=== PATIENT | male | born 1960 | race Caucasian/White ===

== ENCOUNTER 2016-10-30 21:48 | Day surgery (SDC) | payer BC ==
--- NOTE | 2016-10-30 22:13 | EDM.PDOC ---
ED HPI GENERAL MEDICAL PROBLEM - General Chief Complaint: General Stated Complaint: meat stuck in throat Time Seen by Provider: 10/30/16 22:02 Source of Information: Reports: Patient History Limitations: Reports: No Limitations - History of Present Illness INITIAL COMMENTS - FREE TEXT/NARRATIVE: There is a 55-year-old male. Around 9 PM this evening he was eating roast beef and took too big of a chunk and swallowed it and it got stuck in his distal esophagus. He has been trying to drink some fluids but they won't go down he has discomfort in the area just above his epigastric region. He is done this once before 22 years ago. He has no history of anyone telling him he has esophageal strictures he's not been stretched. He has not noticed recently that he is having more difficulty in swallowing foods he just took too big of a chunk of meat this evening and it got stuck. He has had no difficulty in breathing or swallowing and no shortness of breath. He denies any other acute symptoms. - Related Data Allergies Allergy/AdvReac Type Severity Reaction Status Date / Time No Known Allergies Allergy Verified 10/30/16 22:00 Home Meds: Home Meds Aspirin [Ning Chewable Aspirin] 81 mg PO DAILY 10/30/16 [History] Past Medical History HEENT History: Reports: Impaired Vision Cardiovascular History: Reports: High Cholesterol Gastrointestinal History: Reports: Colon Polyp Oncologic (Cancer) History: Reports: Colon Other Oncologic History: pre-cancerous polyp - Infectious Disease History Infectious Disease History: Reports: Chicken Pox - Past Surgical History HEENT Surgical History: Reports: Tonsillectomy, Other (See Below) Other HEENT Surgeries/Procedures: wisdom teeth GI Surgical History: Reports: Appendectomy, Colonoscopy, EGD Other GI Surgeries/Procedures: 22 years ago had meat stuck in throat had an endoscopy Social & Family History - Family History Family Medical History: Noncontributory - Tobacco Use Smoking Status *Q: Never Smoker - Caffeine Use Caffeine Use: Reports: Coffee - Recreational Drug Use Recreational Drug Use: No ED ROS GENERAL - Review of Systems Review Of Systems: See Below Constitutional: Denies: Fever, Chills HEENT: Reports: No Symptoms Respiratory: Reports: No Symptoms Cardiovascular: Reports: No Symptoms Endocrine: Reports: No Symptoms GI/Abdominal: Reports: Other (As per history of present illness) : Reports: No Symptoms Musculoskeletal: Reports: No Symptoms Skin: Reports: No Symptoms Neurological: Reports: No Symptoms Psychiatric: Reports: No Symptoms Hematologic/Lymphatic: Reports: No Symptoms ED EXAM, GENERAL - Physical Exam Exam: See Below Exam Limited By: No Limitations General Appearance: Alert, WD/WN, Mild Distress Eye Exam: Bilateral Eye: Normal Inspection Ears: Normal External Exam Nose: Normal Inspection Throat/Mouth: Normal Lips, Normal Voice Head: Normocephalic Neck: Supple Respiratory/Chest: No Respiratory Distress, Lungs Clear, Normal Breath Sounds Cardiovascular: Regular Rate, Rhythm, No Murmur GI/Abdominal: Soft, Non-Tender, Other (No epigastric tenderness on palpation there is no guarding no rebound no tenderness) Back Exam: Full Range of Motion Extremities: Normal Inspection, Normal Range of Motion Neurological: Alert, Oriented Psychiatric: Normal Affect, Normal Mood Skin Exam: Warm, Dry Course - Vital Signs Last Recorded V/S: Last Vital Signs Temp 98.4 F 10/30/16 21:56 Pulse 105 H 10/30/16 21:56 Resp 19 10/31/16 00:09 BP 139/99 H 10/30/16 21:56 Pulse Ox 98 10/31/16 00:09 - Orders/Labs/Meds Orders: Active Orders 24 hr Category Date Time Status Patient Status [ADT] Routine ADT 10/31/16 00:00 Active Communication Order [RC] ROUTINE Care 10/30/16 23:57 Active Patient to Empty Bladder [RC] ASDIRECTED Care 10/30/16 23:57 Active Verify Patient Consent Obtain [RC] ASDIRECTED Care 10/30/16 23:57 Active Nothing Per Oral Diet [DIET] Diet 10/30/16 Dinner Active Sodium Chloride 0.9% [Normal Saline] 1,000 ml Med 10/30/16 22:45 Active IV ASDIRECTED Sodium Chloride 0.9% [Normal Saline] 1,000 ml Med 10/30/16 23:45 Ordered IV ASDIRECTED Schedule Procedure [COMM] Stat Oth 10/31/16 00:01 Ordered Resuscitation Status Routine Resus Stat 10/30/16 23:57 Ordered Medication Orders Sodium Chloride (Normal Saline) 1,000 mls @ 500 mls/hr IV ASDIRECTED [facility] Last Admin: 10/30/16 22:41 Dose: 500 mls/hr Sodium Chloride (Normal Saline) 1,000 mls @ 125 mls/hr IV ASDIRECTED [facility] Meds: Medications Generic Name Dose Route Start Last Admin Trade Name Freq PRN Reason Stop Dose Admin Sodium Chloride 1,000 mls @ 500 mls/hr 10/30/16 22:45 10/30/16 22:41 Normal Saline IV 500 mls/hr ASDIRECTED [facility] Administration Sodium Chloride 1,000 mls @ 125 mls/hr 10/30/16 23:45 Normal Saline IV ASDIRECTED [facility] Discontinued Medications Generic Name Dose Route Start Last Admin Trade Name Freq PRN Reason Stop Dose Admin Fentanyl Confirm 10/31/16 00:40 Sublimaze Administered 10/31/16 00:41 Dose 100 mcg .ROUTE .STK-MED ONE Glucagon 1 mg 10/30/16 22:35 10/30/16 22:43 Glucagen IVPUSH 10/30/16 22:36 1 mg ONETIME ONE Administration Propofol Confirm 10/31/16 00:40 Diprivan 20 Ml Administered 10/31/16 00:41 Dose 400 mg .ROUTE .STK-MED ONE - Re-Assessments/Exams Free Text/Narrative Re-Assessment/Exam: 10/30/16 23:28 We started an IV and gave him 1 mg of glucagon IV. This was approximately an hour ago and it is not cause the roast beef to become dislodged. We gave him some water to drink but he was unable to get it down. I did speak to Dr. Medina and he will see the patient in the ER for further evaluation and treatment. We will call anesthesia in the OR crew as per Dr. Medina's request. Departure - Departure Time of Disposition: 23:29 Disposition: DC/Tfer to [facility] Condition: Fair Clinical Impression: Impacted esophageal foreign body Qualifiers: Encounter type: initial encounter Qualified Code(s): T18.108A - Unspecified foreign body in esophagus causing other injury, initial encounter - Discharge Information - My Orders Last 24 Hours: My Active Orders 10/30/16 22:45 Sodium Chloride 0.9% [Normal Saline] 1,000 ml IV ASDIRECTED 10/31/16 00:00 Patient Status [ADT] Routine 10/31/16 00:01 Schedule Procedure [COMM] Stat - Assessment/Plan Last 24 Hours: My Active Orders 10/30/16 22:45 Sodium Chloride 0.9% [Normal Saline] 1,000 ml IV ASDIRECTED 10/31/16 00:00 Patient Status [ADT] Routine 10/31/16 00:01 Schedule Procedure [COMM] Stat
[2016-10-30] MEDS ORDERED: Glucagon,Human Recombinant 1 MG Vial IVPUSH ONE (22:35)
[2016-10-30] MEDS ORDERED: Sodium Chloride 0.9% 1,000 ML IV SCH ×2 (22:45→23:45)
--- NOTE | 2016-10-31 00:04 | PCM.HP ---
H&P History of Present Illness - General Date of Service: 10/30/16 Admit Problem/Dx: Esophageal meat impaction Source of Information: Patient History Limitations: Reports: No Limitations - History of Present Illness Initial Comments - Free Text/Narative: 55-year-old male ate steak at about 9 PM which is 3 hours ago that became lodged in his esophagus. It has not passed and because of this he has not been able to manage his salivary secretions. He presented to the emergency room complaining of the food sticking. Glucagon was given by ED staff which failed to allow for the meat to pass. I was asked to evaluate him for meat disimpaction. Patient has a history of occasional GERD symptoms for which he takes a PPI PRN. He had an EGD about 5 years ago which showed some mild gastritis. He also noted occasional difficulty swallowing. - Related Data Allergies/Adverse Reactions: Allergies Allergy/AdvReac Type Severity Reaction Status Date / Time No Known Allergies Allergy Verified 10/30/16 22:00 Home Medications: Home Meds Aspirin [Ning Chewable Aspirin] 81 mg PO DAILY 10/30/16 [History] Past Medical History HEENT History: Reports: Impaired Vision Cardiovascular History: Reports: High Cholesterol Gastrointestinal History: Reports: Colon Polyp Oncologic (Cancer) History: Reports: Colon Other Oncologic History: pre-cancerous polyp - Infectious Disease History Infectious Disease History: Reports: Chicken Pox - Past Surgical History HEENT Surgical History: Reports: Tonsillectomy, Other (See Below) Other HEENT Surgeries/Procedures: wisdom teeth GI Surgical History: Reports: Appendectomy, Colonoscopy, EGD Other GI Surgeries/Procedures: 22 years ago had meat stuck in throat had an endoscopy Social & Family History - Family History Family Medical History: Noncontributory - Tobacco Use Smoking Status *Q: Never Smoker - Caffeine Use Caffeine Use: Reports: Coffee - Recreational Drug Use Recreational Drug Use: No H&P Review of Systems - Review of Systems: Review Of Systems: ROS reveals no pertinent complaints other than HPI. Exam - Exam Exam: See Below - Vital Signs Vital Signs: Last Vital Signs Temp 36.9 C 10/30/16 21:56 Pulse 105 H 10/30/16 21:56 Resp 19 10/30/16 21:56 BP 139/99 H 10/30/16 21:56 Pulse Ox 98 10/30/16 21:56 Weight: 124.738 kg - Exam General: Alert, Oriented, Cooperative, Mild Distress HEENT: EOMI, Hearing Intact Neck: Supple, Trachea Midline Lungs: Clear to Auscultation, Normal Respiratory Effort Cardiovascular: Regular Rate, Regular Rhythm, Normal S1, Normal S2 GI/Abdominal Exam: Normal Bowel Sounds, Soft, Non-Tender (Male) Exam: Deferred Rectal (Males) Exam: Deferred Back Exam: Normal Inspection Extremities: Normal Inspection Skin: Warm, Dry, Intact Psychiatric: Alert, Normal Affect, Normal Mood *Q Meaningful Use (ADM) - VTE *Q VTE Criteria *Q: - Stroke *Q Stroke Criteria *Q: - AMI *Q AMI Criteria *Q: - Problem List (1) Impacted esophageal foreign body SNOMED Code(s): 19281878 ICD Code: T18.108A - UNSP FOREIGN BODY IN ESOPHAGUS CAUSING OTH INJURY, INIT Status: Acute Priority: High Current Visit: Yes Qualifiers: Encounter type: initial encounter Qualified Code(s): T18.108A - Unspecified foreign body in esophagus causing other injury, initial encounter Problem List Initiated/Reviewed/Updated: Yes Orders Last 24hrs: Active Orders 24 hr Category Date Time Status Communication Order [RC] ROUTINE Care 10/30/16 23:57 Ordered Patient to Empty Bladder [RC] ASDIRECTED Care 10/30/16 23:57 Ordered Verify Patient Consent Obtain [RC] ASDIRECTED Care 10/30/16 23:57 Ordered Nothing Per Oral Diet [DIET] Diet 10/30/16 Dinner Ordered Sodium Chloride 0.9% @ 125 MLS/HR (1000ml) Med 10/30/16 23:45 Ordered Sodium Chloride 0.9% [Normal Saline] 1,000 ml IV ASDIRECTED Sodium Chloride 0.9% [Normal Saline] 1,000 ml Med 10/30/16 22:45 Active IV ASDIRECTED Resuscitation Status Routine Resus Stat 10/30/16 23:57 Ordered Medication Orders Sodium Chloride (Normal Saline) 1,000 mls @ 500 mls/hr IV ASDIRECTED [facility] Last Admin: 10/30/16 22:41 Dose: 500 mls/hr Assessment/Plan Comment:: imp: Esophageal meat impaction failing medical management. Endoscopy with mechanical disimpaction is indicated. plan: Esophagoscopy with meat disimpaction. The patient is familiar with the procedure and wants to proceed as soon as possible.
--- NOTE | 2016-10-31 00:10 | PCM.PREANE ---
Preanesthetic Assessment - Anesthesia/Transfusion/Family Hx Anesthesia History: Prior Anesthesia Without Reaction Family History of Anesthesia Reaction: No Intubation History: Unknown - Review of Systems General: No Symptoms Pulmonary: No Symptoms Gastrointestinal: No Symptoms, Difficulty Swallowing Neurological: No Symptoms Other: Reports: None - Physical Assessment NPO Status Date: 10/30/16 NPO Status Time: 19:00 (Single bite of roast beef ) O2 Sat by Pulse Oximetry: 98 Respiratory Rate: 19 Vital Signs: Last Vital Signs Temp 36.9 C 10/30/16 21:56 Pulse 105 H 10/30/16 21:56 Resp 19 10/30/16 21:56 BP 139/99 H 10/30/16 21:56 Pulse Ox 98 10/30/16 21:56 Height: 1.93 m Weight: 124.738 kg ASA Class: 2 Mental Status: Alert & Oriented x3 Dentition: Reports: Normal Dentition Thyro-Mental Finger Breadths: 3 Mouth Opening Finger Breadths: 3 ROM/Head Extension: Full Lungs: Clear to Auscultation, Normal Respiratory Effort Cardiovascular: Regular Rate, Regular Rhythm - Allergies Allergies/Adverse Reactions: Allergies Allergy/AdvReac Type Severity Reaction Status Date / Time No Known Allergies Allergy Verified 10/30/16 22:00 - Acknowledgements Anesthesia Type Planned: MAC Pt an Appropriate Candidate for the Planned Anesthesia: Yes Alternatives and Risks of Anesthesia Discussed w Pt/Guardian: Yes Pt/Guardian Understands and Agrees with Anesthesia Plan: Yes PreAnesthesia Questionnaire HEENT History: Reports: Impaired Vision Cardiovascular History: Reports: High Cholesterol Gastrointestinal History: Reports: Colon Polyp Oncologic (Cancer) History: Reports: Colon Other Oncologic History: pre-cancerous polyp - Infectious Disease History Infectious Disease History: Reports: Chicken Pox - Past Surgical History HEENT Surgical History: Reports: Tonsillectomy, Other (See Below) Other HEENT Surgeries/Procedures: wisdom teeth GI Surgical History: Reports: Appendectomy, Colonoscopy, EGD Other GI Surgeries/Procedures: 22 years ago had meat stuck in throat had an endoscopy - SUBSTANCE USE Smoking Status *Q: Never Smoker Recreational Drug Use History: No - HOME MEDS Home Medications: Home Meds Aspirin [Ning Chewable Aspirin] 81 mg PO DAILY 10/30/16 [History] - CURRENT (IN HOUSE) MEDS Current Meds: Current Medications Sodium Chloride (Normal Saline) 1,000 mls @ 500 mls/hr IV ASDIRECTED [facility] Last Admin: 10/30/16 22:41 Dose: 500 mls/hr Sodium Chloride (Normal Saline) 1,000 mls @ 125 mls/hr IV ASDIRECTED [facility] Discontinued Medications Glucagon (Glucagen) 1 mg IVPUSH ONETIME ONE Stop: 10/30/16 22:36 Last Admin: 10/30/16 22:43 Dose: 1 mg
[2016-10-31] MEDS ORDERED: Propofol 200 MG/20 ML SDV ONE ×2 (00:40→01:01)
[2016-10-31] MEDS ORDERED: fentaNYL 100 MCG/2 ML SDV ONE (00:40)
--- NOTE | 2016-10-31 00:59 | PCM.OPNOTE ---
- General Post-Op/Procedure Note Date of Surgery/Procedure: 10/31/16 Operative Procedure(s): Esophagogastroduodenoscopy with meat disimpaction and gastric polypectomy Findings: Distal esophageal meat impaction and multiple gastric polyps. No strictures or chronic inflammatory changes seen at the GE junction. No mass lesions throughout the body of the esophagus and stomach. Pre Op Diagnosis: Food impaction of the esophagus Post-Op Diagnosis: 1. Food impaction of the distal esophagus. 2. Gastric polyposis Anesthesia Technique: MAC, Moderate Sedation Primary Surgeon: Emir Medina Pathology: Gastric polyp EBL in mLs: 0 Complications: None Condition: Good Free Text/Narrative:: After adequate IV sedation and analgesia was obtained with monitoring the patient was placed on his left side. Through a bite-block lubricated upper endoscope was inserted in the esophagus and advanced under direct vision to the distal esophagus. A lot of saliva and food impacted at the GE junction was seen. I aspirated out the saliva. I used a snare to break up the meat as well as a forceps to break up the meat. Once the meat impaction was smaller I was able to push the smaller pieces of meat into the stomach. The stomach was entered and I saw multiple gastric polyps throughout the body and fundic regions of the stomach. I passed to the antrum and into the pylorus. The second and first parts of the duodenum were normal except for some mild inflammation in the duodenum. There were no ulcers. There were no antral ulcers or erosions. In the retroflexed view there was no hiatal hernia. I did see the food that was passed through the esophagus into the stomach. Multiple gastric polyps were visualized and I used cold forceps to biopsy one of the larger ones for polypectomy. The scope was then withdrawn back to the GE junction with no strictures or mass lesions seen. There were no chronic inflammatory endoscopic changes seen. The body of the esophagus was unremarkable. On extubation the vocal cords were briefly visualized and they were grossly normal. [employer] photographs were taken for the patient and for the record. There were no procedural complications.
--- NOTE | 2016-10-31 01:03 | PCM.POSTAN ---
POST ANESTHESIA ASSESSMENT - MENTAL STATUS Mental Status: Alert, Oriented - VITAL SIGNS Pulse Rate: 88 SaO2: 93 Resp Rate: 14 Blood Pressure: 124/79 Temperature: 36.6 C - RESPIRATORY Respiratory Status: Respiratory Rate WNL, Airway Patent, O2 Saturation Stable, Supplemental Oxygen - CARDIOVASCULAR CV Status: Pulse Rate WNL, Blood Pressure Stable - GASTROINTESTINAL GI Status: No Symptoms - PAIN Pain Score: 0 - POST OP HYDRATION Hydration Status: Adequate & Stable
[2016-10-31] MEDS ORDERED: Ondansetron 4 MG/2 ML SDV ONE (01:09)
--- NOTE | 2016-10-31 01:20 | PCM48HPAN ---
Post Anesthesia Note - EVALUATION WITHIN 48HRS OF ANESTHETIC Vital Signs in Normal Range: Yes Patient Participated in Evaluation: Yes Respiratory Function Stable: Yes Airway Patent: Yes Cardiovascular Function Stable: Yes Hydration Status Stable: Yes Pain Control Satisfactory: Yes Nausea and Vomiting Control Satisfactory: Yes Mental Status Recovered: Yes - COMMENTS/OBSERVATIONS Free Text/Narrative:: Patient able to cough and deep breathe, denies SOB, comfortable.
[2016-10-31] MEDS ORDERED: Succinylcholine 200 MG/10 ML MDV ONE (01:32)
[2016-10-31 01:57] VITALS: BP 111/79
== END 2016-10-31 01:47 | disposition home or self-care (01) ==
LOC: JD.ED 21:48 → JD.SDS 10-31 00:07
PROVIDERS: ATTEND Surgery
DX: K31.7 Polyp of stomach and duodenum (principal); T18.128A Food in esophagus causing other injury, initial encounter; K21.9 Gastro-esophageal reflux disease without esophagitis; E78.00 Pure hypercholesterolemia, unspecified; Z79.82 Long term (current) use of aspirin; Z90.49 Acquired absence of other specified parts of digestive tract; Z98.890 Other specified postprocedural states
CPT/HCPCS: 43239; 96361; 96374; 99285; J1610; J2405; J3010; J7040; 00740; J0330; J2704

== ENCOUNTER 2019-04-01 10:24 | Emergency (ER) | payer BC ==
[2019-04-01 10:52] VITALS: BP 129/104; PULSE 91
--- NOTE | 2019-04-01 11:14 | EDM.PDOC ---
ED HPI GENERAL MEDICAL PROBLEM - General Chief Complaint: Head Injury Stated Complaint: FELL HIT HEAD CUT OPEN Time Seen by Provider: 04/01/19 11:05 Source of Information: Reports: Patient History Limitations: Reports: No Limitations - History of Present Illness INITIAL COMMENTS - FREE TEXT/NARRATIVE: Patient is a 58-year-old male who presents with complaints of a laceration to the occipital region of his head. States he slipped on the ice fell backward and hit his head on the cement. He is unsure if he lost consciousness, however he does not think he did. He states that he had to lay on the ground for a while for he could get up. He currently complains of a generalized headache. Patient is on 81 mg of aspirin daily, however he states he is not taken it for a few days. - Related Data Allergies Allergy/AdvReac Type Severity Reaction Status Date / Time No Known Allergies Allergy Verified 04/01/19 10:52 Home Meds: Home Meds Aspirin [Ning Chewable Aspirin] 81 mg PO DAILY 10/30/16 [History] Past Medical History HEENT History: Reports: Impaired Vision Cardiovascular History: Reports: High Cholesterol Gastrointestinal History: Reports: Colon Polyp Oncologic (Cancer) History: Reports: Colon Other Oncologic History: pre-cancerous polyp - Infectious Disease History Infectious Disease History: Reports: Chicken Pox - Past Surgical History HEENT Surgical History: Reports: Tonsillectomy, Other (See Below) Other HEENT Surgeries/Procedures: wisdom teeth GI Surgical History: Reports: Appendectomy, Colonoscopy, EGD Other GI Surgeries/Procedures: 22 years ago had meat stuck in throat had an endoscopy Social & Family History - Family History Family Medical History: Noncontributory - Tobacco Use Smoking Status *Q: Never Smoker - Caffeine Use Caffeine Use: Reports: None - Recreational Drug Use Recreational Drug Use: No ED ROS GENERAL - Review of Systems Review Of Systems: Comprehensive ROS is negative, except as noted in HPI. ED EXAM, HEAD INJURY - Physical Exam Exam: See Below Exam Limited By: No Limitations General Appearance: Alert, WD/WN, No Apparent Distress Head: Scalp Lacerations (4 cm to the occipital aging) Neck: Non-Tender, Full Range of Motion, Normal Alignment, Normal Inspection Respiratory: No Respiratory Distress, Lungs Clear, Normal Breath Sounds, No Accessory Muscle Use, Chest Non-Tender Cardiovascular: Normal Peripheral Pulses, Regular Rate, Rhythm, No Edema, No Gallop, No JVD, No Murmur, No Rub Neurologic: ophthalmic pathologist II-XII nml As Tested, No Motor/Sensory Deficits, Alert, Normal Mood/Affect, Oriented x 3 Skin: Normal Color, Warm/Dry - Jerrica Coma Score Best Eye Response ([place]): (4) Open Spontaneously Best Verbal Response ([place]): (5) Oriented Best Motor Response ([place]): (6) Obeys Commands [place] Total: 15 ED LACERATION/WOUND & AMELIA PROC - Laceration/Wound Repair Middle Posterior Head Lac/wound length in cm: 3 Appearance: Subcutaneous Distal NVT: Neuro & Vascular Intact Anesthetic Type: Local Local Anesthesia - Lidocaine (Xylocaine): 1% with EPI Local Anesthetic Volume: 2cc Skin Prep: Chlorhexidine (Hibiciens), Saline Exploration/Debridement/Repair: Wound Explored Closed with: Sutures Suture Size: 4-0 # of Sutures: 5 Suture Type: Nylon Tetanus Status Addressed: Other (Up-to-date. 2014.) Complications: No Course - Vital Signs Last Recorded V/S: Last Vital Signs Temp 97.8 F 04/01/19 10:49 Pulse 91 04/01/19 10:49 Resp 19 04/01/19 10:49 BP 129/104 H 04/01/19 10:49 Pulse Ox 97 04/01/19 10:49 - Orders/Labs/Meds Meds: Medications Discontinued Medications Generic Name Dose Route Start Last Admin Trade Name Nilsonq PRN Reason Stop Dose Admin Lidocaine/Epinephrine 20 ml 04/01/19 11:17 04/01/19 12:24 Xylocaine 1% With Epinephrine 1:100,000 INJECT 04/01/19 11:18 20 ml ONETIME ONE Administration - Re-Assessments/Exams Free Text/Narrative Re-Assessment/Exam: 04/01/19 12:23 CT was negative for any acute findings. Patient requested that wound be closed with sutures instead of zion as they will be out of town. 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 Discharge instructions as noted. Departure - Departure Time of Disposition: 12:24 Disposition: Home, Self-Care 01 Condition: Fair Clinical Impression: Scalp laceration - Discharge Information *PRESCRIPTION DRUG MONITORING PROGRAM REVIEWED*: No *COPY OF PRESCRIPTION DRUG MONITORING REPORT IN PATIENT ATUL: No Instructions: Laceration Care, Adult Referrals: Spencer Rubio MD [Primary Care Provider] - Forms: ED Department Discharge Additional Instructions: You were seen in the emergency department today for a 4 cm laceration to your posterior head. A CT of your head was completed and showed no abnormalities. The wound was closed with 5 sutures. These should stay intact for 7 days. After that time they may be removed at any clinic or by a nurse. The wound should be cleansed twice daily with normal soap and water. It may be left open to air. Watch for signs of infection that includes increased swelling, increased pain, or purulent drainage. If should experience any of these symptoms, you should be seen either in the emergency department or in the clinic. If you should experience any new or worsening symptoms of concern, please do not hesitate to return to the ER. Sepsis Event Note - Evaluation Sepsis Screening Result: No Definite Risk - Focused Exam Vital Signs: Vital Signs Temp Pulse Resp BP Pulse Ox 04/01/19 10:49 97.8 F 91 19 129/104 H 97 Date Exam was Performed: 04/01/19 Time Exam was Performed: 21:02
[2019-04-01] MEDS ORDERED: Lidocaine 1% with EPINEPHrine 1:100,000 20 ML MDV INJECT ONE (11:17)
--- NOTE | 2019-04-01 12:15 | CT ---
Head CT Technique: Multiple axial sections through the brain were obtained. Intravenous contrast was not utilized. Comparison: No prior intracranial imaging is available. Findings: Ventricles along with basal cisterns and sulci over the convexities appear within normal limits for the patient's age. Mild increased density is noted posteriorly within the scalp compatible with soft tissue swelling. No evidence of intracranial hemorrhage. No midline shift or mass-effect is seen. Bone window settings were reviewed. Retention cyst appears to be present within the right frontal sinus measuring 8 mm. Mild mucosal thickening is partially seen within the left maxillary sinus. Mastoid sinuses that are seen appear clear. No acute calvarial abnormality is seen. Impression: 1. Slight paranasal sinus findings. 2. Soft tissue swelling within the posterior scalp. 3. No acute intracranial abnormality is appreciated. Diagnostic code #2 This report was dictated in [place] Standard Time
== END 2019-04-01 12:34 | disposition home or self-care (01) ==
LOC: JD.ED 10:24
DX: S01.01XA Laceration without foreign body of scalp, initial encounter (principal); Z79.82 Long term (current) use of aspirin; W00.0XXA Fall on same level due to ice and snow, initial encounter
CPT/HCPCS: 12002; 70450; 70450-26; 99282; 99283-25

== ENCOUNTER 2020-12-17 20:27 | Emergency (ER) | payer BC ==
[2020-12-17 21:17] VITALS: BP 153/98; PULSE 93
--- NOTE | 2020-12-17 22:03 | EDM.PDOC ---
ED HPI GENERAL MEDICAL PROBLEM - General Chief Complaint: Lower Extremity Injury/Pain Stated Complaint: LEFT LEG SWOLLEN & PAINFUL Time Seen by Provider: 12/17/20 21:30 Source of Information: Reports: Patient, Family History Limitations: Reports: No Limitations - History of Present Illness INITIAL COMMENTS - FREE TEXT/NARRATIVE: Patient is a 60-year-old male with a past medical history of obesity presenting with a chief complaint of left lower extremity pain and swelling. Patient states that this morning, he was getting out of a tractor when he tripped and fell. He states that he did not have any immediate pain but as the afternoon progressed when he was sitting in a chair all day he started to notice increased swelling and pain to his left lower extremity. The pain and swelling seem to be isolated to the distal left lower extremity and is diffuse. Reports pain that extends up to the superior portion of the posterior knee down to the distal calf area. Pain seems to be worse with ambulating and improved with rest. Patient denies any fevers, chills, nausea, vomiting, history of DVT/PE, history of cancer, history of recent hospitalization or surgery. Prior to the incident today and this afternoon, patient did not have any issues with his left lower extremity besides some osteoarthritis of his left knee. However, this did not involve his calf at all. Patient has not taken any pain medications at all prior to arrival in the emergency room. Patient believes he has a blood clot and would like an ultrasound. Left Leg Pain Score (Numeric/FACES): 8 - Related Data Allergies Allergy/AdvReac Type Severity Reaction Status Date / Time No Known Allergies Allergy Verified 12/17/20 21:16 Home Meds: Home Meds Aspirin [Ning Chewable Aspirin] 81 mg PO DAILY 10/30/16 [History] Tumeric/Ging/[place]/Oreg/Capryl [Candicidal Capsule] 1 tab PO DAILY 12/17/20 [History] Past Medical History HEENT History: Reports: Impaired Vision Cardiovascular History: Reports: High Cholesterol Gastrointestinal History: Reports: Colon Polyp Oncologic (Cancer) History: Reports: Colon Other Oncologic History: pre-cancerous polyp - Infectious Disease History Infectious Disease History: Reports: Chicken Pox - Past Surgical History HEENT Surgical History: Reports: Tonsillectomy, Other (See Below) Other HEENT Surgeries/Procedures: wisdom teeth GI Surgical History: Reports: Appendectomy, Colonoscopy, EGD Other GI Surgeries/Procedures: 22 years ago had meat stuck in throat had an endoscopy Social & Family History - Family History Family Medical History: No Pertinent Family History - Tobacco Use Tobacco Use Status *Q: Never Tobacco User Second Hand Smoke Exposure: No - Caffeine Use Caffeine Use: Reports: Coffee - Recreational Drug Use Recreational Drug Use: No Review of Systems - Review of Systems Review Of Systems: See Below Constitutional: Denies: Chills, Fever Ears: Denies: Dizziness Nose: Denies: Congestion Respiratory: Denies: Shortness of Breath Cardiovascular: Denies: Chest Pain GI/Abdominal: Denies: Abdominal Pain Musculoskeletal: Reports: Leg Pain Skin: Denies: Jaundice, Rash Neurological: Denies: Numbness, Tingling, Weakness ED EXAM, GENERAL - Physical Exam Exam: See Below Free Text/Narrative:: I have reviewed the triage vital signs Const: Well nourished, well developed, appears stated age Eyes: Pupils Equal and reactive to light bilaterally, no conjunctival injection HENT: No signs of trauma or swelling, Neck supple without meningismus CV: Regular Rate Rhythm, Warm, well-perfused extremities RESP: Unlabored respiratory effort GI: soft, non-tender, non-distended, no masses MSK: Left lower extremity demonstrates some mild swelling diffusely to the calf. There is no bony deformity or bony tenderness to palpation. No pitting edema. The right leg is also somewhat enlarged but does not appear to be swollen as the left lower extremity. No gross deformities appreciated Skin: Warm, dry. No rashes. 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 Sensation and motor function of extremities grossly intact. Psych: Appropriate mood and affect. Course - Vital Signs Last Recorded V/S: Last Vital Signs Temp 36.2 C 12/17/20 21:12 Pulse 93 12/17/20 21:12 Resp 18 12/17/20 21:12 BP 153/98 H 12/17/20 21:12 Pulse Ox 96 12/17/20 21:12 Departure - Departure Time of Disposition: 22:02 Disposition: Home, Self-Care 01 Clinical Impression: Gastrocnemius strain, left - Discharge Information Instructions: Medial Head Gastrocnemius Tear Rehab-SportsMed Referrals: Spencer Rubio MD [Primary Care Provider] - Forms: ED Department Discharge Additional Instructions: I recommend use of ibuprofen and Tylenol every 6-8 hours at home. In addition, you can use warm compresses for 15 minutes at a time. Also, I recommend elevation of the extremity above the level of the heart while at rest. Do this for the next 5 to 7 days. If your symptoms worsen, you can certainly return to the emergency room or follow-up with your primary care physician. Sepsis Event Note (ED) - Evaluation Sepsis Screening Result: No Definite Risk - Focused Exam Vital Signs: Vital Signs Temp Pulse Resp BP Pulse Ox 12/17/20 21:12 36.2 C 93 18 153/98 H 96 - Assessment/Plan Assessment:: Patient is a 60-year-old male with a complaint of left lower extremity pain. Patient had unremarkable ER course. He was offered an x-ray to evaluate for any bony injury or abnormality as well as analgesia. However, patient declined both these. With lengthy discussion about patient's risk for having a DVT. Currently, he has a Well's score of -1, making additional testing or work-up for DVT unnecessary. Patient's clinical history seems to be more suspicious for musculoskeletal injury given time correlation of the events as well as underlying osteoarthritis of his left knee that is possibly been altering his gait. Also considered on differential was infectious cause which does not seem the case based on history or examination. No evidence of ruptured Achilles tendon as this is intact on exam. Furthermore no evidence of torsion or ruptured gastrocnemius or soleus but this could be considered at a later date if his symptoms do not improve. We discussed appropriate return precautions. Patient agrees with plan of care.
== END 2020-12-17 22:19 | disposition home or self-care (01) ==
LOC: JD.ED 20:27
DX: S86.812A Strain of other muscle(s) and tendon(s) at lower leg level, left leg, initial encounter (principal); E66.9 Obesity, unspecified; Z68.34 Body mass index [BMI] 34.0-34.9, adult; W01.0XXA Fall on same level from slipping, tripping and stumbling without subsequent striking against object, initial encounter
CPT/HCPCS: 99283

== ENCOUNTER 2021-07-28 22:40 | Emergency (ER) | payer BC ==
[2021-07-28] MEDS ORDERED: Metoclopramide 10 MG/2 ML SDV IVPUSH ONE (23:01)
[2021-07-28] MEDS ORDERED: Sodium Chloride 0.9% 10 ML Syringe FLUSH PRN (23:01)
[2021-07-28] MEDS ORDERED: Glucagon,Human Recombinant 1 MG Vial IVPUSH ONE (23:01)
[2021-07-28] MEDS ORDERED: fentaNYL 100 MCG/2 ML SDV IVPUSH ONE (23:01)
[2021-07-28 23:08] VITALS: BP 140/102; PULSE 81
== END 2021-07-29 00:25 | disposition left against medical advice (07) ==
LOC: JD.ED 22:40
DX: T18.128A Food in esophagus causing other injury, initial encounter (principal); Z79.82 Long term (current) use of aspirin; Z86.16 Personal history of COVID-19
CPT/HCPCS: 99283

== ENCOUNTER 2022-11-11 07:03 | Day surgery (SDC) | payer BC ==
[~2022-11-11 07:03] MED LIST: Acetaminophen 325 MG Tab PO SCH; Dexmedetomidine 200 MCG/2 ML SDV ONE; EPINEPHrine 1 MG/ML SDV ONE; Lactated Ringers 1,000 ML IV SCH; Morphine 8 MG, EPINEPHrine 0.3 MG, Cefuroxime 750 MG, Ketorolac 30 MG, Sodium Chloride ... PRN; Pregabalin 25 MG Cap PO SCH; Ropivacaine 0.5% 5 MG/ML 30 ML SDV ONE; Sodium Chloride 0.9% 10 ML Syringe FLUSH PRN; Sodium Chloride 0.9% 10 ML Syringe FLUSH SCH; oxyCODONE ER 10 MG TAB.ER PO SCH
[2022-11-11] MEDS ORDERED: Propofol 200 MG/20 ML SDV ONE (07:19)
[2022-11-11] MEDS ORDERED: ceFAZolin 2 GM Vial ONE (07:19)
[2022-11-11] MEDS ORDERED: Midazolam 1 MG/ML 2 ML SDV ONE (07:20)
[2022-11-11] MEDS ORDERED: fentaNYL 100 MCG/2 ML SDV ONE (07:20)
[2022-11-11] MEDS ORDERED: Tranexamic Acid 1,000 MG/10 ML Vial ONE (08:15)
[2022-11-11] MEDS ORDERED: Vancomycin 1 GM SDV ONE (08:15)
[2022-11-11] MEDS ORDERED: Bupivacaine 0.25% 10 ML SDV ONE (08:15)
[2022-11-11] MEDS ORDERED: Triamcinolone Acetonide 40 MG/ML 1 ML SDV ONE (08:15)
[2022-11-11] MEDS ORDERED: Ondansetron 4 MG/2 ML SDV ONE (09:12)
[2022-11-11] MEDS ORDERED: Ketorolac 30 MG/ML SDV ONE (09:12)
[2022-11-11] MEDS ORDERED: Lactated Ringers 1,000 ML ONE (09:14)
[2022-11-11] MEDS ORDERED: Ondansetron 4 MG/2 ML SDV IVPUSH PRN (09:24)
[2022-11-11] MEDS ORDERED: fentaNYL 100 MCG/2 ML SDV IVPUSH PRN (09:24)
[2022-11-11] MEDS ORDERED: HYDROmorphone 0.5 MG/0.5 ML Syringe IVPUSH PRN (09:24)
[2022-11-11] MEDS ORDERED: Cyclobenzaprine 10 MG Tab PO PRN (11:18)
[2022-11-11] MEDS: oxyCODONE 5 MG Tab PO PRN ×2 (11:40→12:50)
[2022-11-11] MEDS ORDERED: Acetaminophen 325 MG Tab PO ONE (14:43)
[2022-11-11 15:21] VITALS: BP 120/69; PULSE 57
== END 2022-11-11 15:05 | disposition home or self-care (01) ==
LOC: JD.SDS 07:03
PROVIDERS: ATTEND Orthopaedic Surgery
DX: M17.0 Bilateral primary osteoarthritis of knee (principal); E78.5 Hyperlipidemia, unspecified; E11.9 Type 2 diabetes mellitus without complications; E78.2 Mixed hyperlipidemia; G47.33 Obstructive sleep apnea (adult) (pediatric); Z88.8 Allergy status to other drugs, medicaments and biological substances; Z79.82 Long term (current) use of aspirin; Z79.899 Other long term (current) drug therapy; Z90.89 Acquired absence of other organs; Z98.890 Other specified postprocedural states
CPT/HCPCS: 01402; 64447; 73560-26-LT; 73560-LT; 97110-GP; 97116-GP; 97161-GP; A9270-GY; C1713; C1776; J0171; J0690; J0697; J1885; J2250; J2270; J2405; J2704; J2795; J3010; J3301; J3370; J3490; J7030; J7120